=== PATIENT | female | born 1945 | race Caucasian/White ===

== ENCOUNTER 2018-09-11 14:53 | Emergency (ER) | payer MEDICARE, OTHER ==
--- NOTE | 2018-09-11 15:40 | CRLCR ---
INDICATION: dyspnea TECHNIQUE: Chest 2 views. COMPARISON: None. FINDINGS: Cardiovascular and mediastinum: Heart size and vasculature are normal in caliber and appearance. Mediastinum is within normal limits. Lungs and pleural spaces: Lungs are clear. No sign of infiltrate or mass. No sign of pleural effusion. No pneumothorax. Bones and soft tissues: No significant findings. IMPRESSION: Unremarkable chest. Dictated by: Ramses Antonio MD @ 09/11/2018 15:39:29 (Electronically Signed)
--- NOTE | 2018-09-11 15:51 | EDM.PDOC ---
ED HPI GENERAL MEDICAL PROBLEM - General Chief Complaint: Chest Pain Stated Complaint: CHEST PAIN Time Seen by Provider: 09/11/18 15:20 Source of Information: Reports: Patient, Family History Limitations: Reports: No Limitations - History of Present Illness INITIAL COMMENTS - FREE TEXT/NARRATIVE: 73-year-old female with no cardiac history presents with sudden chest pain. She has a history of recurring sharp spasming pain in the left anterior chest, usually only lasts seconds to just under a minute and then goes away. Today while eating ice cream she developed a sharp pain in the left anterior chest, painful to breathe but not short of breath, no diaphoresis or nausea. After 1 to 2 minutes it went away but some pain lingered in the upper chest and left shoulder and left arm and her arm felt "heavy". Because this was different than past episodes she came in to have it checked. She has not been ill, no cough or shortness of breath, denies abdominal pain or back pain. Onset: Sudden Duration: Hour(s): (Pain came on about an hour ago) Location: Reports: Chest Quality: Reports: Sharp, Stabbing Improves with: Reports: None Worsens with: Reports: Breathing Associated Symptoms: Reports: No Other Symptoms - Related Data Allergies Allergy/AdvReac Type Severity Reaction Status Date / Time amoxicillin Allergy Swelling Verified 09/11/18 15:04 Sulfa (Sulfonamide Allergy Cannot Verified 09/11/18 15:04 Antibiotics) Remember Home Meds: Home Meds Levothyroxine 75 mcg PO ACBREAKFAST 09/11/18 [History] Lisinopril 10 mg PO BEDTIME 09/11/18 [History] Omeprazole 20 mg PO BEDTIME 09/11/18 [History] Simvastatin 20 mg PO DAILY 09/11/18 [History] Past Medical History HEENT History: Reports: Cataract Cardiovascular History: Reports: Heart Murmur, High Cholesterol, Hypertension Gastrointestinal History: Reports: [employer] History: Reports: Musculoskeletal History: Reports: Fracture Neurological History: Reports: Migraines Endocrine/Metabolic History: Reports: Hypothyroidism - Past Surgical History HEENT Surgical History: Reports: Cataract Surgery GI Surgical History: Reports: Appendectomy Female Surgical History: Reports: Tubal Ligation Endocrine Surgical History: Reports: Other (See Below) Other Endocrine Surgeries/Procedures: partial thyroidectomy Social & Family History - Tobacco Use Smoking Status *Q: Former Smoker Used Tobacco, but Quit: Yes Month/Year Tobacco Last Used: 30 years - Caffeine Use Caffeine Use: Reports: Coffee - Recreational Drug Use Recreational Drug Use: No ED ROS GENERAL - Review of Systems Review Of Systems: See Below Constitutional: Denies: Fever, Chills HEENT: Reports: No Symptoms Respiratory: Reports: Pleuritic Chest Pain. Denies: Shortness of Breath Cardiovascular: Reports: Chest Pain GI/Abdominal: Denies: Abdominal Pain, Nausea, Vomiting : Reports: No Symptoms Musculoskeletal: Reports: Other (Dull left shoulder pain and left arm heaviness) Skin: Reports: No Symptoms Neurological: Reports: No Symptoms ED EXAM, GENERAL - Physical Exam Exam: See Below Exam Limited By: No Limitations General Appearance: Alert, Moderate Distress Head: Atraumatic Neck: Non-Tender Respiratory/Chest: No Respiratory Distress, Lungs Clear Cardiovascular: Regular Rate, Rhythm, No Murmur. No: Extra Beats GI/Abdominal: Soft, Other (She reacts with tenderness in the left lower quadrant with palpation) Extremities: Normal Inspection. No: Pedal Edema Neurological: Alert, Oriented Psychiatric: Normal Affect, Normal Mood Skin Exam: Warm, Dry EKG INTERPRETATION Rhythm: NSR Course - Vital Signs Last Recorded V/S: Last Vital Signs Temp 97.3 F 09/11/18 14:57 Pulse 74 09/11/18 16:28 Resp 16 09/11/18 16:28 BP 163/87 H 09/11/18 16:28 Pulse Ox 97 09/11/18 16:28 - Orders/Labs/Meds Orders: Active Orders 24 hr Category Date Time Status EKG Documentation Completion [RC] ASDIRECTED Care 09/11/18 15:24 Active EKG 12 Lead [EK] Routine Ther 09/11/18 15:24 Ordered Labs: Laboratory Tests 09/11/18 09/11/18 Range/Units 15:42 15:42 WBC 7.8 (4.5-11.0) K/uL RBC 4.53 (3.30-5.50) M/uL Hgb 12.9 (12.0-15.0) g/dL Hct 41.0 (36.0-48.0) % MCV 91 (80-98) fL MCH 29 (27-31) pg MCHC 32 (32-36) % Plt Count 320 (150-400) K/uL Neut % (Auto) 54 (36-66) % Lymph % (Auto) 32 (24-44) % Mitchell % (Auto) 9 H (2-6) % Eos % (Auto) 4 (2-4) % Baso % (Auto) 1 (0-1) % Sodium 141 (140-148) mmol/L Potassium 3.6 (3.6-5.2) mmol/L Chloride 103 (100-108) mmol/L Carbon Dioxide 30 (21-32) mmol/L Anion Gap 7.8 (5.0-14.0) mmol/L BUN 19 H (7-18) mg/dL Creatinine 0.9 (0.6-1.0) mg/dL Est Cr Clr Drug Dosing 46.39 mL/min Estimated GFR (MDRD) > 60 (>60) Glucose 142 H (74-106) mg/dL Calcium 9.5 (8.5-10.1) mg/dL Total Bilirubin 0.3 (0.2-1.0) mg/dL AST 21 (15-37) U/L ALT 33 (12-78) U/L Alkaline Phosphatase 67 (46-116) U/L Troponin I < 0.017 (0.000-0.056) ng/mL Total Protein 8.2 (6.4-8.2) g/dL Albumin 4.0 (3.4-5.0) g/dL Globulin 4.2 H (2.3-3.5) g/dL Albumin/Globulin Ratio 1.0 L (1.2-2.2) - Re-Assessments/Exams Free Text/Narrative Re-Assessment/Exam: 09/11/18 15:50 The symptoms sound noncardiac, but an EKG was done which was normal. Two-view chest x-ray also done which was normal. Initial blood pressure was 195 systolic but improved. CBC CMP and troponin were obtained. 09/11/18 16:23 over the course of an hour in the emergency room the patient's pain resolved completely, blood pressure normalized, and her troponin returned 0. CBC was also normal as well as CMP other than a mildly elevated glucose. Discussed repeating the troponin in 4 hours, patient agreed to return after 7 PM for a second troponin. Departure - Departure Time of Disposition: 16:28 Disposition: Home, Self-Care 01 Condition: Good Clinical Impression: Atypical chest pain - Discharge Information Instructions: Nonspecific Chest Pain Referrals: PCP,None [Primary Care Provider] - Forms: ED Department Discharge Care Plan Goals: Activity and diet as tolerated. Return urgently if pain recurs especially with shortness of breath, nausea, or diaphoresis. Otherwise return after 7 PM for repeat blood tests. - My Orders Last 24 Hours: My Active Orders 09/11/18 15:24 EKG Documentation Completion [RC] ASDIRECTED EKG 12 Lead [EK] Routine - Assessment/Plan Last 24 Hours: My Active Orders 09/11/18 15:24 EKG Documentation Completion [RC] ASDIRECTED EKG 12 Lead [EK] Routine
== END 2018-09-11 16:32 | disposition home or self-care (01) ==
LOC: JP.ED 14:53
DX: R07.89 Other chest pain (principal); I10 Essential (primary) hypertension; Z88.2 Allergy status to sulfonamides; Z88.1 Allergy status to other antibiotic agents; Z79.899 Other long term (current) drug therapy; Z87.891 Personal history of nicotine dependence; R07.9 Chest pain, unspecified
CPT/HCPCS: 36415; 71046; 80053; 84484; 85025; 93005; 93010; 99284; 99285-25